=== PATIENT | male | born 1940 | race Caucasian/White ===

== ENCOUNTER 2020-04-15 13:11 | Outpatient (CLI) | payer OTHER, SELFPAY ==
--- NOTE | 2020-04-15 13:28 | CT_ITS ---
WS: [id number] CT CHEST TECHNIQUE: Contrast enhanced CT of the chest with coronal and sagittal reformatted images. CLINICAL INFORMATION: FOLLOW UP PULMONARY NODULE COMPARISON: CT chest March 29, 2019 September 12, 2018 DLP: 795.[address] scans at [facility] [place] use at least one of these dose optimization techniques: automat ed exposure control; mA and/or kV adjustment per patient size (includes targeted exams where dose is matched to clinical indication); or iterative reconstruction. FINDINGS: Moderate chronic emphysematous changes. No acute pulmonary infiltrates. Calcified granulomas. Promine nt pretracheal and right hilar lymph nodes unchanged.Noncalcified pulmonary nodule right lower lobe n ear the fissure measuring 7 mm appears unchanged. Additional tiny 2 mm pulmonary nodule right lower l obe laterally. Previously described 3 mm noncalcified pulmonary nodule right upper lobe medially unch anged. Aortic calcification. Proximal main pulmonary arteries are normal. No axillary lymphadenopathy. Left renal cyst measuring 4.1 CM. Splenic granulomas. Postoperative changes at the GE junction. Diffu se fatty infiltration of the liver. CT/CT chest w con* [id number] IMPRESSION: 1. Noncalcified 3 mm pulmonary nodule right upper lobe medially is unchanged. 2. Noncalcified 7 mm pulmonary nodule right lower lobe near the fissure is unc hanged. Recommend 12 month follow-up. Additional tiny 2 mm pulmonary nodule rig ht lower lobe laterally also unchanged. 3. Moderate chronic emphysematous changes. No acute pulmonary infiltrates. 4. Stable slightly enlarged pretracheal and right hilar lymph nodes. 5. Postoperative changes GE junction. 6. Partially visualized left renal cyst measuring 4.1 cm.
[2020-04-15 13:53] LABS: Blood Urea Nitrogen 16 mg/dL (8-23)
== END 2020-04-15 13:12 | disposition home or self-care (01) ==
LOC: RADWPI 13:17
PROVIDERS: PCP Emergency Medicine Emergency Medical Services; Visit Provider Emergency Medicine Emergency Medical Services
DX: R91.8 Other nonspecific abnormal finding of lung field (principal); N28.1 Cyst of kidney, acquired
CPT/HCPCS: 71260; 82565; 84520; Q9967

== ENCOUNTER 2021-06-15 14:53 | Outpatient (CLI) | payer OTHER, SELFPAY ==
--- NOTE | 2021-06-15 14:54 | US_ITS ---
WS: [id number] ULTRASOUND RENAL TECHNIQUE: Ultrasound examination of both kidneys. CLINICAL INFORMATION: FOLLOW UP ON RENAL CYST COMPARISON: None. FINDINGS: RIGHT: Right kidney is normal in size and appearance. Echogenicity: Normal. Cortical thickness: 1.4 cm; Normal. Hydronephrosis: None. Perinephric fluid: None. Right kidney measures: 11.5 cm x 5.4 cm x 5.3 cm. LEFT:Left lower pole simple renal cyst measuring 3.8 x 4.7 x 3.9 cm. This appears unchanged since the prior CT abdomen pelvis June 16, 2018. Left kidney is normal in size and appearance. Echogenicity: Normal. Cortical thickness: 1.3 cm; Normal. Hydronephrosis: None. Perinephric fluid: None. Left kidney measures: 11.6 cm x 4.5 cm x 5.4 cm. Infrarenal abdominal aortic aneurysm measuring 4.6 x 4.3 cm AP by transverse with peripheral mural th rombus. This appears similar to the CT abdomen pelvis June 16, 2018. Bladder is decompressed. US/US renal BI* [id number] IMPRESSION: 1. No hydronephrosis in either kidney. 2. Left lower pole simple renal cyst measuring 3.8 x 4.7 x 3.9 cm. This appear s unchanged since the prior CT abdomen pelvis June 16, 2018. 3. No cystic or solid lesions right kidney. 4. Infrarenal abdominal aortic aneurysm measuring 4.6 x 4.3 cm AP by transvers e with peripheral mural thrombus. This appears similar to the CT abdomen pelvis June 16, 2018.
== END 2021-06-15 14:54 | disposition home or self-care (01) ==
PROVIDERS: PCP Emergency Medicine Emergency Medical Services; Visit Provider Emergency Medicine Emergency Medical Services
DX: N28.1 Cyst of kidney, acquired (principal); I71.4 Abdominal aortic aneurysm, without rupture
CPT/HCPCS: 76770

== ENCOUNTER → 2022-06-04 11:06 | Outpatient (BNVA) | payer OTHER, SELFPAY | PROVIDERS: PCP Emergency Medicine Emergency Medical Services; Visit Provider Podiatrist Foot & Ankle Surgery | DX: S92.421A Displaced fracture of distal phalanx of right great toe, initial encounter for closed fracture (principal); W30.89XA Contact with other specified agricultural machinery, initial encounter; B35.1 Tinea unguium; M79.671 Pain in right foot | CPT/HCPCS: 73630; 99203 ==